=== PATIENT | female | born 1955 | race Caucasian/White ===

== ENCOUNTER → 2017-02-25 | Outpatient (CLI) | payer BC ==
[~2017-02-25] MED LIST: CITA10TA7 PO; DICL50TA9 PO; ESTR0.5T PO; HYDR-4246 PO; ORPH100T2 PO; TRIA1CAP6 PO; ZOLP5TAB8 PO
== END ==
LOC: WC.BC 07:59
DX: Z12.31 Encounter for screening mammogram for malignant neoplasm of breast (principal); N64.89 Other specified disorders of breast; Z80.3 Family history of malignant neoplasm of breast; Z98.82 Breast implant status
CPT/HCPCS: 77063; G0202